=== PATIENT | female | born 1970 | race Caucasian/White ===

== ENCOUNTER 2018-04-29 13:51 | Emergency (ER) | payer MEDICARE, MEDICAID ==
[~2018-04-29] VITALS: Ht 170.2 cm; Wt 136.0 kg
[~2018-04-29 13:51] MED LIST: ALBU18HF2 INH; ALBU8.5H8 IH; ASPI-611 PO; BENZ-16 PO; CARI350T PO; FLUT16SP26 BOTHNARES; GUAI-178 PO; GUAI120015 PO; HYDR-4353 PO; IBUP-1985 PO; LIDO700A5 TOP; LORA-512 PO; METO25TA6 PO; NITR0.4T48 SL; ONDA4TAB12 PO; PHEN-716 PO
--- NOTE | 2018-04-29 14:00 | NUR ---
removed all rings to bilat hands and is keeping them with him.
--- NOTE | 2018-04-29 14:10 | NUR ---
paitent to xray.
[2018-04-29] MEDS ORDERED: LIDOcaine 1% 30ml preserv. free vial IJ ONE (14:25)
[2018-04-29] MEDS ORDERED: HYDROcodone/acetaminophen 10/325mg tab PO ONE (14:25)
--- NOTE | 2018-04-29 15:28 | NUR ---
LINE OUT MAN IN ROOM
[2018-04-29] MEDS ORDERED: HYDR-4353 PO (15:58)
[2018-04-29] MEDS ORDERED: NAPR-56 PO (15:58)
[2018-04-29 16:11] VITALS: BP 145/87
== END 2018-04-29 16:13 | disposition home or self-care (01) ==
LOC: ER 13:51
DX: S52.592A Other fractures of lower end of left radius, initial encounter for closed fracture (principal); S52.591A Other fractures of lower end of right radius, initial encounter for closed fracture; S52.611A Displaced fracture of right ulna styloid process, initial encounter for closed fracture; J45.909 Unspecified asthma, uncomplicated; G89.29 Other chronic pain; Z56.0 Unemployment, unspecified; Z88.5 Allergy status to narcotic agent; Z88.6 Allergy status to analgesic agent; Z88.1 Allergy status to other antibiotic agents; Z79.82 Long term (current) use of aspirin; Z79.899 Other long term (current) drug therapy; W19.XXXA Unspecified fall, initial encounter; Y93.89 Activity, other specified; Y92.89 Other specified places as the place of occurrence of the external cause; Y99.9 Unspecified external cause status
CPT/HCPCS: 25605; 29125; 73100; 73110; 99284; J3490

== ENCOUNTER 2018-04-30 00:53 | Emergency (ER) | payer MEDICARE, MEDICAID ==
[~2018-04-30] VITALS: Ht 170.2 cm; Wt 61.8 kg
[~2018-04-30 00:53] MED LIST changes: +NAPR-56 PO
[2018-04-30] MEDS ORDERED: HYDROcodone/acetaminophen 5mg/325mg tablet PO ONE (01:20)
[2018-04-30] MEDS ORDERED: ibuprofen tablet 400 MG TABLET PO ONE (01:25)
[2018-04-30] MEDS ORDERED: HYDROmorphone 1 mg/ml syringe IM ONE (02:15)
--- NOTE | 2018-04-30 02:28 | NUR ---
LIDIA WAS PAGED TO COME IN TO REDUE SPLINT. I WAS IN ROOM TO AID HER IF NEEDED. LIDIA CUT COTTON WRAPS AND REWRAPPED SPLINT EXTREAMLY LOOSE. CURCULATION WAS RESTORED, AND HAND MOVEMENT IMPROVED.
--- NOTE | 2018-04-30 02:30 | NUR ---
SPLINT EVALUATED BY , PT SAYS ALSO THAT IT FEELS SO MUCH BETTER NOW. CMS INTACT.
[2018-04-30 02:32] VITALS: BP 112/82
== END 2018-04-30 02:33 | disposition home or self-care (01) ==
LOC: ER 00:54
DX: M79.602 Pain in left arm (principal); R20.0 Anesthesia of skin; J45.909 Unspecified asthma, uncomplicated; G89.29 Other chronic pain; Z56.0 Unemployment, unspecified; Z88.5 Allergy status to narcotic agent; Z88.6 Allergy status to analgesic agent; Z88.8 Allergy status to other drugs, medicaments and biological substances; Z79.82 Long term (current) use of aspirin; Z79.899 Other long term (current) drug therapy
CPT/HCPCS: 29125; 96372; 99283; J1170

== ENCOUNTER 2018-05-04 11:06 | Outpatient (CLI) | payer MEDICARE, MEDICAID ==
[~2018-05-04] VITALS: Ht 170.2 cm; Wt 63.0 kg
[2018-05-04 11:07] VITALS: BP 128/82
== END 2018-05-04 12:05 | disposition home or self-care (01) ==
LOC: ORTHO 11:06
PROVIDERS: ATTEND Nurse Practitioner Family
DX: S52.592A Other fractures of lower end of left radius, initial encounter for closed fracture (principal); S52.591A Other fractures of lower end of right radius, initial encounter for closed fracture; J45.909 Unspecified asthma, uncomplicated; F17.210 Nicotine dependence, cigarettes, uncomplicated; Z88.6 Allergy status to analgesic agent; Z88.5 Allergy status to narcotic agent; Z88.8 Allergy status to other drugs, medicaments and biological substances; W19.XXXA Unspecified fall, initial encounter; Y93.89 Activity, other specified; Y92.89 Other specified places as the place of occurrence of the external cause; Y99.8 Other external cause status
CPT/HCPCS: G0463

== ENCOUNTER 2018-05-11 18:03 | Emergency (ER) | payer MEDICARE, MEDICAID ==
[~2018-05-11] VITALS: Ht 170.2 cm; Wt 59.1 kg
[~2018-05-11 18:03] MED LIST changes: -ALBU8.5H8 IH; -ASPI-611 PO; -BENZ-16 PO; -CARI350T PO; -FLUT16SP26 BOTHNARES; -GUAI-178 PO; -GUAI120015 PO; -LIDO700A5 TOP; -LORA-512 PO; -METO25TA6 PO; -NAPR-56 PO; -NITR0.4T48 SL; -ONDA4TAB12 PO; -PHEN-716 PO
[2018-05-11 18:45] VITALS: BP 142/81
[2018-05-11] MEDS ORDERED: ketorolac trometh inj. 60 MG/2 ML VIAL IM ONE (18:55)
[2018-05-11] MEDS ORDERED: oxyCODONE/APAP 10/325mg tablet PO ONE (18:55)
[2018-05-11] MEDS ORDERED: HYDROmorphone 1 mg/ml syringe IM ONE (20:15)
== END 2018-05-11 22:25 | disposition home or self-care (01) ==
LOC: ER 18:04
DX: S52.592D Other fractures of lower end of left radius, subsequent encounter for closed fracture with routine healing (principal); S52.591D Other fractures of lower end of right radius, subsequent encounter for closed fracture with routine healing; S52.611D Displaced fracture of right ulna styloid process, subsequent encounter for closed fracture with routine healing; I10 Essential (primary) hypertension; J45.909 Unspecified asthma, uncomplicated; G89.29 Other chronic pain; Z56.0 Unemployment, unspecified; Z98.890 Other specified postprocedural states; Z79.899 Other long term (current) drug therapy; Z88.1 Allergy status to other antibiotic agents; Z88.6 Allergy status to analgesic agent; W19.XXXD Unspecified fall, subsequent encounter
CPT/HCPCS: 29125; 96372; 99284; J1170; J1885

== ENCOUNTER 2018-05-19 05:24 | Day surgery (SDC) | payer MEDICARE, MEDICAID ==
[2018-05-09 10:33] LABS: BASOPHILS % (AUTO) 0.3 % (0-1); EOSINOPHILS # (AUTO) 0.3 X10'3 (0-0.9); EOSINOPHILS % (AUTO) 2.6 % (0-6); LYMPHOCYTES # (AUTO) 2.2 X10'3 (1.1-4.8); LYMPHOCYTES % (AUTO) 22.8 % (21-51); MEAN CORPUSCULAR HEMOGLOBIN 31.4 PG (27.0-31.0); MEAN CORPUSCULAR HGB CONC 34.1 g/dL (33.0-36.5); MEAN PLATELET VOLUME 7.6 FL (7.4-10.4); MONOCYTES # (AUTO) 0.6 X10'3 (0-0.9); MONOCYTES % (AUTO) 6.7 % (2-12); NEUTROPHILS # (AUTO) 6.4 X10'3 (1.8-7.7); NEUTROPHILS % (AUTO) 67.6 % (42-75); PRE OP HEMATOCRIT 40.9 % (35.0-45.0); PRE OP HEMOGLOBIN 13.9 g/dL (12.0-16.0); PRE OP PLATELET COUNT 291 X10'3 (140-440); RED BLOOD COUNT 4.45 X10'6 (4.20-5.60); RED CELL DISTRIBUTION WIDTH 12.4 % (11.5-14.5)
[2018-05-09 10:48] LABS: ALBUMIN 3.8 G/DL (3.4-5.0); ALKALINE PHOSPHATASE 77 IU/L (46-116); BLOOD UREA NITROGEN 15 MG/DL (7-18); BUN/CREATININE RATIO 21.1 (6.6-38.0); CALCIUM 9.1 MG/DL (8.5-10.1); CHLORIDE 103 MMOL/L (99-107); CREATININE 0.71 MG/DL (0.40-0.90); PRE OP ALT 26 U/L (30-65); PRE OP ANION GAP 10 (8-16); PRE OP AST 18 U/L (10-37); PRE OP BILIRUB, TOTAL 0.4 MG/DL (0.0-1.0); PRE OP GLUCOSE 90 MG/DL (70-104); PRE OP POTASSIUM 3.9 MMOL/L (3.4-5.1); PRE OP SODIUM 139 MMOL/L (135-145); TOTAL CARBON DIOXIDE 25.6 MMOL/L (24-32); TOTAL PROTEIN 7.7 G/DL (6.4-8.2); eGFR 88 ML/MIN
[2018-05-19] VITALS (10 sets, daily range): BP systolic 108–145; BP diastolic 68–89
[~2018-05-19] VITALS: Ht 170.2 cm; Wt 58.6 kg
[~2018-05-19 05:24] MED LIST changes: -ALBU18HF2 INH; -IBUP-1985 PO; +IBUP-24 PO; +VANCOMYCIN INJ 1000 MG in NORMAL SALINE 250ml IV.SOLN IV ONE; +albuterol 2.5 MG/3 ML nebule NEB ONE; +cefazolin/dext.iso 2gm/100 ML IV ONE; +cefazolin/dext.iso 2gm/50ml 50 ML IV ONE; +famotidine 20mg tablet PO ONE; +ringers solution, lacted 1,000 ML IV SCH
[2018-05-19] MEDS ORDERED: cefazolin/dext.iso 2gm/50ml 50 ML IV ONE (05:30)
[2018-05-19] MEDS ORDERED: famotidine 20mg tablet PO ONE (05:30)
[2018-05-19] MEDS ORDERED: albuterol 2.5 MG/3 ML nebule NEB ONE ×2 (05:30→07:25)
[2018-05-19] MEDS ORDERED: VANCOMYCIN INJ 1000 MG in NORMAL SALINE 250ml IV.SOLN IV ONE (05:30)
[2018-05-19] MEDS ORDERED: LIDOcaine 1% (10mg/ml) 2ml vial SQ ONE (05:59)
[2018-05-19] MEDS ORDERED: LIDOcaine 1% (10mg/ml) 2ml vial ONE (05:59)
[2018-05-19] MEDS ORDERED: BUPIVAcaine/PF 2.5mg/ml (0.25%) 10ml vial ONE (06:41)
[2018-05-19] MEDS ORDERED: ceFAZolin 1000mg inj ONE (06:41)
[2018-05-19] MEDS ORDERED: MIDAZolam 5mg/5ml vial ONE (07:30)
[2018-05-19] MEDS ORDERED: fentaNYL /PF 50mcg/ml 5ml ampule ONE (07:31)
[2018-05-19] MEDS ORDERED: dexamethasone sod phosphate 10mg/ml inj ONE (07:40)
[2018-05-19] MEDS ORDERED: sevoflurane 250ml liquid IH ONE (07:40)
[2018-05-19] MEDS ORDERED: propofol inj 20 ML IV ONE (07:47)
[2018-05-19] MEDS ORDERED: ringers solution, lacted 1,000 ML IV SCH (08:28)
[2018-05-19] MEDS ORDERED: proCHLORperazine 10 MG/2 ml inj IV PRN (08:30)
[2018-05-19] MEDS ORDERED: meperidine/PF 25mg/ml syringe IV PRN ×2 (08:30)
[2018-05-19] MEDS ORDERED: ondansetron/PF 4mg/2ml inj IV PRN (08:30)
[2018-05-19] MEDS ORDERED: BUPIVAcaine/PF 7.5mg/ml (0.75%) 10ml vial ONE (09:06)
[2018-05-19] MEDS ORDERED: ketorolac trometh. 30mg/ml inj. ONE (10:23)
--- NOTE | 2018-05-19 10:55 | NUR ---
Received from OR via BED, accompanied by Anesthesiologist DR BLAND--- and report given by Anesthesiolgist. PATIENT A&OX4, C/O PAIN, V/S WNL, NEUROVASCULAR CHECKS INTACT, 20G PIV RLE, SCD ON, BILAT WRIST SPLINT DRESSING CDI
[2018-05-19] MEDS: meperidine/PF 25mg/ml syringe IV PRN ×5 (10:56→11:28)
[2018-05-19] MEDS ORDERED: HYDROcodone/acetaminophen 10/325mg tab PO ONE (11:00)
[2018-05-19] MEDS ORDERED: acetaminophen 1,000mg/100ml IV 100 ML IV ONE (11:00)
--- NOTE | 2018-05-19 11:37 | NUR ---
PATIENT C/O DRESSING BEING TO TIGHT, HUMAN RESOURCES REPRESENTATIVE <2 SEC , DRESSINGS UNWRAPPED AND REWRAPPED VERY [place] BILATERALLY AND THIS WAS DONE 2 TIMES TO EACH HAND. PATIENT STILL C/O OF TIGHTNESS BUT IT IS BETTER THAN BEFORE SHE STATES. THIS MAY BE RELATED TO LOCAL MEDS CAUSING CHANGES IN SENSATION. PATIENT INSTRUCTED TO CALL IF TIGHTNESS GETS WORSE AND MORE PAINFULL OR IF COLOR CHANGES TO FINGERS AND HE WAS TAUGHT HUMAN RESOURCES REPRESENTATIVE <2 SEC APPROPRIATE
--- NOTE | 2018-05-19 11:49 | NUR ---
PATIENT CRYING AND EMOTIONAL WITH AT BED SIDE. SHE STATES SHE WANTS TO GO HOME. THEY HAVE PAIN MEDS AT HOME WELL HE STATED AND WILL BE FINE. 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
--- NOTE | 2018-05-19 12:05 | NUR ---
PATIENT A&OX4, DENIES PAIN, V/S WNL, NEUROVASCULAR CHECKS INTACT, 20G PIV LLE D/C, SCD OFF, DRESSING TO RIGHT AND LEFT WRIST CDI ELEVATED AND LOOSENED EARLIER. I HAVE REVIEWED D/C INSTRUCTIONS WITH PATIENT AND FAMILY AND THEY HAVE VERBALIZED UNDERSTANDING. PATIENT D/C HOME WITH ALL BELONGINGS AND FAMILY GAVE TRANSPORT HOME. Addendum: 05/19/18 at 1621 by Fermín Reilly RN PATIENT A&OX4, SEE PAIN NOTES IN V/S RECORD, V/S WNL, NEUROVASCULAR CHECKS INTACT, 20G PIV LLE D/C, SCD OFF, DRESSING TO RIGHT AND LEFT WRIST CDI ELEVATED AND LOOSENED MENTIONED EARLIER. I HAVE REVIEWED D/C INSTRUCTIONS WITH PATIENT AND FAMILY AND THEY HAVE VERBALIZED UNDERSTANDING. PATIENT D/C HOME WITH ALL BELONGINGS AND FAMILY GAVE TRANSPORT HOME.
--- NOTE | 2018-05-19 15:59 | NUR ---
PATIENTS CALLED RECOVER AND IS DOWN IN ER NOW. HE STATED THEY WENT HOME AND PATIENT TOOK 1 MOTRIN AND WAS AFRAID TO TAKE HER OTHER PRESCRIBED MEDS BECAUSE SHE WAS AFRAID IT WOULD INTERFERE WITH THE ANESTHESIA SHE GOT EARLIER TODAY. HER TRIED TO GET HER TO TAKE HER PRESCRIBED MEDS BUT SHE WOULD ONLY TAKE HALF A DOSE HE STATED. hE ALSO SAID SHE HAD USED UP MOST OF HER MEDS THAT SHE WAS PRESCRIBED FROM HER LAST DOCTORS VISIT AND THEY TRIED TO GET THE BOTTLE REFILLED BUT THEIR PHARMACY WOULD NOT FILL IT BECAUSE IT WAS TO SOON. i ADVISED THE HIM TO HAVE HIS TAKE THE FULL DOSE OF PAIN MEDICINE PRESCRIBED IF HER PAIN WAS NOT CONTROLLED AND TO REMEMBER TO KEEP HER ARMS ELEVATED AND ICE FOR THE NEXT 2 DAYS ON AND OFF EVERY 30 MINUTES. I ALSO TOLD HIM THAT IF HER PAIN WAS NOT WELL CONTROLLED AFTER THAT AND THEY ARE UNABLE TO GET THEIR PHARMACY TO FILL THEIR NORCO THAT WAS ORDERED THEN THEY WOULD HAVE TO SEE THEIR DOCTOR OR TRY THE ER TO SEE WHAT THEY CAN DO TO GET HER PAIN UNDER CONTROL AND PERHAPS THEY WOULD PRESCRIBE SOMETHING STRONGER THEN NORCO. tHE AGREED TO THIS AND WANTS TO STAY IN ER FOR HIS TO BE SEEN HOPING TO GET SOMETHING STRONGER. wHILE PATIENT WAS HERE AT 1130 TODAY SHE RECEIVED 100MG OF DEMEROL, IV TYLENOL, NORCO, AND TORADOL.
[2018-05-19] MEDS ORDERED: OXYC-138 PO (16:44)
== END 2018-05-19 12:05 | disposition home or self-care (01) ==
LOC: PAS 05:24
PROVIDERS: ATTEND Orthopaedic Surgery
DX: S52.591A Other fractures of lower end of right radius, initial encounter for closed fracture (principal); S52.592A Other fractures of lower end of left radius, initial encounter for closed fracture; F17.210 Nicotine dependence, cigarettes, uncomplicated; F12.90 Cannabis use, unspecified, uncomplicated; W17.89XA Other fall from one level to another, initial encounter; Y93.21 Activity, ice skating; Y92.89 Other specified places as the place of occurrence of the external cause; Y99.8 Other external cause status; Z88.6 Allergy status to analgesic agent; Z88.8 Allergy status to other drugs, medicaments and biological substances; Z79.899 Other long term (current) drug therapy; Z91.041 Radiographic dye allergy status
CPT/HCPCS: 25607; 36415; 71046; 80053; 82948; 85025; 93005; 94640; 94760; A6449; C1713; J0131; J0690; J1100; J1885; J2175; J2250; J2704; J3010; J3370; J3490; A7000; J7120

== ENCOUNTER 2018-05-19 15:39 | Emergency (ER) | payer MEDICARE, MEDICAID ==
[~2018-05-19] VITALS: Ht 170.2 cm; Wt 27.9 kg
[~2018-05-19 15:39] MED LIST changes: -VANCOMYCIN INJ 1000 MG in NORMAL SALINE 250ml IV.SOLN IV ONE; -albuterol 2.5 MG/3 ML nebule NEB ONE; -cefazolin/dext.iso 2gm/100 ML IV ONE; -cefazolin/dext.iso 2gm/50ml 50 ML IV ONE; -famotidine 20mg tablet PO ONE; -ringers solution, lacted 1,000 ML IV SCH
[2018-05-19 16:23] VITALS: BP 146/77
[2018-05-19] MEDS ORDERED: LORazepam 1 MG tablet PO ONE (16:30)
[2018-05-19] MEDS ORDERED: oxyCODONE/APAP 10/325mg tablet PO ONE (16:30)
[2018-05-19] MEDS ORDERED: OXYC-138 PO (16:44)
== END 2018-05-19 17:23 | disposition home or self-care (01) ==
LOC: ER 15:40
DX: G89.18 Other acute postprocedural pain (principal); M25.531 Pain in right wrist; M25.532 Pain in left wrist; I10 Essential (primary) hypertension; G89.29 Other chronic pain; J45.909 Unspecified asthma, uncomplicated; F17.210 Nicotine dependence, cigarettes, uncomplicated; Z56.0 Unemployment, unspecified; Z88.1 Allergy status to other antibiotic agents; Z88.6 Allergy status to analgesic agent; Z88.8 Allergy status to other drugs, medicaments and biological substances; Z98.890 Other specified postprocedural states
CPT/HCPCS: 29125; 99284

== ENCOUNTER 2018-05-30 10:44 | Outpatient (CLI) | payer MEDICARE, MEDICAID ==
[~2018-05-30 10:44] MED LIST changes: +OXYC-138 PO
[2018-05-30 10:48] VITALS: BP 115/77
[2018-05-30] MEDS ORDERED: LIDOcaine 1% 30ml preserv. free vial ONE (11:20)
[2018-05-30] MEDS ORDERED: LIDOcaine 2% 5ml jelly ONE ×2 (11:21)
== END 2018-05-30 13:07 | disposition home or self-care (01) ==
LOC: ORTHO 10:44
PROVIDERS: ATTEND Nurse Practitioner Family
DX: S52.572D Other intraarticular fracture of lower end of left radius, subsequent encounter for closed fracture with routine healing (principal); S52.612D Displaced fracture of left ulna styloid process, subsequent encounter for closed fracture with routine healing; S52.571D Other intraarticular fracture of lower end of right radius, subsequent encounter for closed fracture with routine healing; J45.909 Unspecified asthma, uncomplicated; F17.210 Nicotine dependence, cigarettes, uncomplicated; Z88.6 Allergy status to analgesic agent; Z91.041 Radiographic dye allergy status; W19.XXXD Unspecified fall, subsequent encounter
CPT/HCPCS: 73110; 99214; J3490

== ENCOUNTER 2018-06-08 09:11 | Outpatient (CLI) | payer MEDICARE, MEDICAID ==
[2018-06-08 09:15] VITALS: BP 119/83
== END 2018-06-08 10:18 | disposition home or self-care (01) ==
LOC: ORTHO 09:11
PROVIDERS: ATTEND Nurse Practitioner Family
DX: S52.592D Other fractures of lower end of left radius, subsequent encounter for closed fracture with routine healing (principal); S52.591D Other fractures of lower end of right radius, subsequent encounter for closed fracture with routine healing; J45.909 Unspecified asthma, uncomplicated; F17.210 Nicotine dependence, cigarettes, uncomplicated; Z88.6 Allergy status to analgesic agent; Z88.5 Allergy status to narcotic agent; Z91.041 Radiographic dye allergy status; W19.XXXD Unspecified fall, subsequent encounter
CPT/HCPCS: 99213; A4590

== ENCOUNTER 2018-06-28 15:15 | Outpatient (CLI) | payer MEDICARE, MEDICAID | END 2018-06-28 15:52 | disposition home or self-care (01) | LOC: ORTHO 15:15 | PROVIDERS: ATTEND Orthopaedic Surgery | DX: S52.502K Unspecified fracture of the lower end of left radius, subsequent encounter for closed fracture with nonunion (principal); S52.501K Unspecified fracture of the lower end of right radius, subsequent encounter for closed fracture with nonunion; J45.909 Unspecified asthma, uncomplicated; F17.210 Nicotine dependence, cigarettes, uncomplicated; Z88.6 Allergy status to analgesic agent; Z88.5 Allergy status to narcotic agent; Z91.041 Radiographic dye allergy status; W19.XXXD Unspecified fall, subsequent encounter | CPT/HCPCS: 73100; 99213 ==

== ENCOUNTER 2018-08-03 11:31 | Outpatient (CLI) | payer MEDICARE, MEDICAID ==
[2018-08-03 11:42] VITALS: BP 93/73
== END 2018-08-03 12:45 | disposition home or self-care (01) ==
LOC: ORTHO 11:31
PROVIDERS: ATTEND Orthopaedic Surgery
DX: S52.612K Displaced fracture of left ulna styloid process, subsequent encounter for closed fracture with nonunion (principal); S52.592D Other fractures of lower end of left radius, subsequent encounter for closed fracture with routine healing
CPT/HCPCS: 73110; G0463

== ENCOUNTER 2018-10-31 23:18 | Emergency (ER) | payer MEDICARE, MEDICAID ==
[~2018-10-31] VITALS: Ht 170.2 cm; Wt 60.0 kg
[2018-10-31 23:21] VITALS: BP 105/75
== END 2018-11-01 02:43 | disposition left against medical advice (07) ==
LOC: ER 23:18
DX: G89.18 Other acute postprocedural pain (principal); M25.532 Pain in left wrist; Z53.21 Procedure and treatment not carried out due to patient leaving prior to being seen by health care provider; Z79.899 Other long term (current) drug therapy
CPT/HCPCS: 73110

== ENCOUNTER 2019-02-24 00:24 | Emergency (ER) | payer MEDICARE, MEDICAID ==
[~2019-02-24] VITALS: Ht 170.2 cm; Wt 62.3 kg
[2019-02-24 00:31] VITALS: BP 129/74
[2019-02-24 01:09] LABS: CLARITY,URINE SLIGHTLY CLOUDY (Clear); COLOR,URINE YELLOW (Yellow); GLUCOSE, URINE NEGATIVE (Neg); KETONES,URINE NEGATIVE (Neg); LEUKOCYTE ESTERASE ,URINE MODERATE (Neg); NITRITES, URINE NEGATIVE (Neg); OCCULT BLOOD,URINE MODERATE (Neg); PROTEIN,URINE NEGATIVE (Neg); UA COLLECTION TYPE CLN CATCH MIDSTREAM; UROBILINOGEN,URINE 0.2 E.U/dL (0.2-1.0)
[2019-02-24 01:10] LABS: URINE HCG NEGATIVE (NEG)
[2019-02-24 01:17] LABS: WBC,URINE 20-30 /HPF (0-4)
[2019-02-24 01:18] LABS: BACTERIA,URINE 1+ /HPF (Neg); MUCUS STRANDS NONE SEEN /LPF (Neg); SQUAMOUS EPITHELIAL CELL,UR FEW /LPF (FEW); WBC CLUMPS,URINE MODERATE /HPF (NEGATIVE)
[2019-02-24] MEDS ORDERED: SULF1TAB49 PO (01:21)
[2019-02-24] MEDS ORDERED: PHEN-716 PO (01:21)
[2019-02-24] MEDS ORDERED: phenazopyridine 100mg tablet PO ONE (01:25)
[2019-02-24] MEDS ORDERED: sulfamethoxazole/trimethoprim DS (800/160mg) tablet PO ONE (01:25)
[2019-02-24] MEDS ORDERED: ketorolac tromethamine 15mg/ml inj. IM ONE (01:30)
== END 2019-02-24 01:59 | disposition home or self-care (01) ==
LOC: ER 00:24
DX: N39.0 Urinary tract infection, site not specified (principal); I10 Essential (primary) hypertension; J45.909 Unspecified asthma, uncomplicated; G89.29 Other chronic pain; F12.90 Cannabis use, unspecified, uncomplicated; Z98.890 Other specified postprocedural states; Z56.0 Unemployment, unspecified; Z88.6 Allergy status to analgesic agent; Z88.5 Allergy status to narcotic agent; Z88.1 Allergy status to other antibiotic agents; Z79.899 Other long term (current) drug therapy
CPT/HCPCS: 81001; 81025; 87077; 87088; 87186; 96372; 99284; J1885

== ENCOUNTER 2019-12-10 20:33 | Emergency (ER) | payer MEDICARE, MEDICAID ==
[~2019-12-10] VITALS: Ht 170.2 cm; Wt 60.1 kg
[~2019-12-10 20:33] MED LIST changes: +PHEN-716 PO
--- NOTE | 2019-12-10 20:54 | NUR ---
cn: [id number]
[2019-12-10] MEDS ORDERED: HYDROcodone/acetaminophen 10/325mg tab PO ONE (21:55)
[2019-12-10] MEDS ORDERED: LIDOcaine 1% W/epiNEPHrine 1:200,000 10ml vial IJ ONE (22:05)
[2019-12-10] MEDS ORDERED: sulfamethoxazole/trimethoprim DS (800/160mg) tablet PO ONE (23:10)
[2019-12-10] MEDS ORDERED: cephalexin 250mg capsule PO ONE (23:10)
[2019-12-10] MEDS ORDERED: CEPH-572 PO (23:16)
[2019-12-10] MEDS ORDERED: HYDR-3965 PO (23:16)
[2019-12-10 23:26] VITALS: BP 116/82
== END 2019-12-10 23:26 | disposition home or self-care (01) ==
LOC: ER 20:33
DX: S62.622B Displaced fracture of middle phalanx of right middle finger, initial encounter for open fracture (principal); S62.624B Displaced fracture of middle phalanx of right ring finger, initial encounter for open fracture; I10 Essential (primary) hypertension; J45.909 Unspecified asthma, uncomplicated; G89.29 Other chronic pain; F41.0 Panic disorder [episodic paroxysmal anxiety]; F12.90 Cannabis use, unspecified, uncomplicated; Z98.890 Other specified postprocedural states; Z56.0 Unemployment, unspecified; Z91.048 Other nonmedicinal substance allergy status; Z88.5 Allergy status to narcotic agent; Z88.1 Allergy status to other antibiotic agents; Z91.040 Latex allergy status; Z88.8 Allergy status to other drugs, medicaments and biological substances; Z79.2 Long term (current) use of antibiotics; Z79.899 Other long term (current) drug therapy; Y08.89XA Assault by other specified means, initial encounter; Y93.89 Activity, other specified; Y92.89 Other specified places as the place of occurrence of the external cause; Y99.8 Other external cause status
CPT/HCPCS: 12001; 29130; 73130; 99283

== ENCOUNTER 2020-08-12 13:42 | Emergency (ER) | payer MEDICARE, MEDICAID ==
[~2020-08-12] VITALS: Ht 170.2 cm; Wt 54.6 kg
[2020-08-12] MEDS ORDERED: HYDROcodone/acetaminophen 10/325mg tab PO STA (13:56)
[2020-08-12] MEDS ORDERED: HYDROcodone/acetaminophen 5mg/325mg tablet PO ONE (16:00)
[2020-08-12 16:22] VITALS: BP 125/106
== END 2020-08-12 18:10 | disposition home or self-care (01) ==
LOC: ER 13:43
DX: M25.531 Pain in right wrist (principal); I10 Essential (primary) hypertension; J45.909 Unspecified asthma, uncomplicated; G89.29 Other chronic pain; F12.90 Cannabis use, unspecified, uncomplicated; Z87.440 Personal history of urinary (tract) infections; Z98.891 History of uterine scar from previous surgery; Z56.0 Unemployment, unspecified; Z79.899 Other long term (current) drug therapy; Z91.041 Radiographic dye allergy status; Z88.1 Allergy status to other antibiotic agents; Z88.6 Allergy status to analgesic agent; Z91.040 Latex allergy status; Z88.8 Allergy status to other drugs, medicaments and biological substances; W01.0XXA Fall on same level from slipping, tripping and stumbling without subsequent striking against object, initial encounter; Z91.81 History of falling; Y93.89 Activity, other specified; Y92.89 Other specified places as the place of occurrence of the external cause; Y99.8 Other external cause status
CPT/HCPCS: 29125; 73110; 73200; 99284

== ENCOUNTER 2022-01-05 19:15 | Emergency (ER) | payer MEDICARE, MEDICAID ==
[~2022-01-05] VITALS: Ht 170.2 cm; Wt 52.3 kg
[2022-01-05 19:38] VITALS: BP 97/70
[2022-01-05 20:15] LABS: CLARITY,URINE TURBID (Clear); COLOR,URINE YELLOW (Yellow); GLUCOSE, URINE NEGATIVE (Neg); KETONES,URINE NEGATIVE (Neg); LEUKOCYTE ESTERASE ,URINE MODERATE (Neg); NITRITES, URINE POSITIVE (Neg); OCCULT BLOOD,URINE LARGE (Neg); PROTEIN,URINE 100 mg/dl (Neg); UROBILINOGEN,URINE 0.2 E.U/dL (0.2-1.0)
[2022-01-05 20:20] LABS: BASOPHILS # (AUTO) 0.1 X10'3 (0-0.2); BASOPHILS % (AUTO) 0.5 % (0-1); EOSINOPHILS % (AUTO) 0.1 % (0-6); HEMATOCRIT 39.7 % (35.0-45.0); HEMOGLOBIN 13.7 g/dl (12.0-16.0); LYMPHOCYTES # (AUTO) 1.2 X10'3 (1.1-4.8); LYMPHOCYTES % (AUTO) 10.2 % (21-51); MEAN CORPUSCULAR HEMOGLOBIN 31.4 PG (27.0-31.0); MEAN CORPUSCULAR HGB CONC 34.4 g/dL (33.0-36.5); MEAN CORPUSCULAR VOLUME 91.1 FL (78-98); MEAN PLATELET VOLUME 7.4 FL (7.4-10.4); MONOCYTES # (AUTO) 1.1 X10'3 (0-0.9); MONOCYTES % (AUTO) 9.3 % (2-12); NEUTROPHILS # (AUTO) 9.6 X10'3 (1.8-7.7); NEUTROPHILS % (AUTO) 79.9 % (42-75); PLATELET COUNT 181 X10'3 (140-440); RED BLOOD COUNT 4.35 X10'6 (4.20-5.60); RED CELL DISTRIBUTION WIDTH 13.2 % (11.5-14.5); WHITE BLOOD COUNT 12.1 X10'3 (4.5-11.0)
[2022-01-05 20:23] LABS: UA COLLECTION TYPE CLN CATCH MIDSTREAM
[2022-01-05 20:25] LABS: BACTERIA,URINE 3+ /HPF (Neg); MUCUS STRANDS NONE SEEN /LPF (Neg); WBC,URINE TNTC /HPF (0-4)
[2022-01-05 20:26] LABS: SQUAMOUS EPITHELIAL CELL,UR FEW /LPF (FEW); WBC CLUMPS,URINE MODERATE /HPF (NEGATIVE); YEAST FEW /HPF (NEGATIVE)
[2022-01-05 20:35] LABS: ALANINE AMINOTRANSFERASE 33 U/L (12-78); ALBUMIN 3.4 G/DL (3.4-5.0); ALBUMIN/GLOBULIN RATIO 0.8 (1.1-1.5); ALKALINE PHOSPHATASE 78 IU/L (46-116); ANION GAP 3 (8-16); ASPARTATE AMINO TRANSFERASE 25 U/L (10-37); BILIRUBIN,TOTAL 0.5 MG/DL (0.1-1.0); BLOOD UREA NITROGEN 10 MG/DL (7-18); BUN/CREATININE RATIO 11.4 (6.6-38.0); CHLORIDE 100 MMOL/L (99-107); CREATININE 0.88 MG/DL (0.40-0.90); ETHANOL < 0.010 GM/DL (0.0-0.010); GLUCOSE 113 MG/DL (70-104); POTASSIUM 3.8 MMOL/L (3.5-5.1); SODIUM 134 MMOL/L (135-145); TOTAL CARBON DIOXIDE 30.9 MMOL/L (24-32); TOTAL PROTEIN 7.8 G/DL (6.4-8.2); eGFR 68 ML/MIN
[2022-01-05 20:41] LABS: URINE AMPHETAMINE SCREEN POSITIVE (Neg); URINE BARBITUATE SCREEN NEGATIVE (Neg); URINE BENZODIAZEPINES SCREEN NEGATIVE (Neg); URINE CANNABINOID SCREEN POSITIVE (Neg); URINE COCAINE SCREEN NEGATIVE (Neg); URINE METHADONE SCREEN NEGATIVE (Neg); URINE OPIATE SCREEN NEGATIVE (Neg); URINE PHENCYCLIDINE SCREEN NEGATIVE (Neg)
[2022-01-05] MEDS ORDERED: CEPH250T PO (20:53)
[2022-01-05] MEDS ORDERED: CefTRIAXone 1000mg IM Kit (w/lidocaine diluent) IM ONE (20:55)
[2022-01-05] MEDS ORDERED: acetaminophen 325mg tablet PO ONE (21:15)
== END 2022-01-05 21:28 | disposition home or self-care (01) ==
LOC: ER 19:15
DX: N39.0 Urinary tract infection, site not specified (principal); F15.20 Other stimulant dependence, uncomplicated; R53.1 Weakness; I10 Essential (primary) hypertension; J45.909 Unspecified asthma, uncomplicated; G89.29 Other chronic pain; M54.50 Low back pain, unspecified; F12.90 Cannabis use, unspecified, uncomplicated; Z88.1 Allergy status to other antibiotic agents; Z88.5 Allergy status to narcotic agent; Z88.6 Allergy status to analgesic agent; Z91.040 Latex allergy status; Z91.041 Radiographic dye allergy status; Z98.890 Other specified postprocedural states; Z56.0 Unemployment, unspecified
CPT/HCPCS: 36415; 80053; 80305; 80320; 81001; 85025; 87077; 87088; 87186; 96372; 99283; J0696; J7030

== ENCOUNTER 2022-06-01 17:22 | Emergency (ER) | payer MEDICARE, MEDICAID ==
[~2022-06-01] VITALS: Ht 170.2 cm; Wt 56.8 kg
[2022-06-01 17:39] VITALS: BP 117/84
[2022-06-01 18:08] LABS: BASOPHILS # (AUTO) 0.1 X10'3 (0-0.2); BASOPHILS % (AUTO) 0.7 % (0-1); EOSINOPHILS # (AUTO) 0.2 X10'3 (0-0.9); EOSINOPHILS % (AUTO) 2.5 % (0-6); HEMATOCRIT 40.3 % (35.0-45.0); HEMOGLOBIN 13.5 g/dl (12.0-16.0); LYMPHOCYTES # (AUTO) 2.1 X10'3 (1.1-4.8); LYMPHOCYTES % (AUTO) 29.5 % (21-51); MEAN CORPUSCULAR HEMOGLOBIN 30.9 PG (27.0-31.0); MEAN CORPUSCULAR HGB CONC 33.5 g/dL (33.0-36.5); MEAN CORPUSCULAR VOLUME 92.1 FL (78-98); MEAN PLATELET VOLUME 7.7 FL (7.4-10.4); MONOCYTES # (AUTO) 0.6 X10'3 (0-0.9); NEUTROPHILS # (AUTO) 4.2 X10'3 (1.8-7.7); NEUTROPHILS % (AUTO) 58.3 % (42-75); PLATELET COUNT 241 X10'3 (140-440); RED BLOOD COUNT 4.38 X10'6 (4.20-5.60); RED CELL DISTRIBUTION WIDTH 12.8 % (11.5-14.5); WHITE BLOOD COUNT 7.2 X10'3 (4.5-11.0)
[2022-06-01 18:31] LABS: ALANINE AMINOTRANSFERASE 26 U/L (12-78); ALBUMIN 3.3 G/DL (3.4-5.0); ALBUMIN/GLOBULIN RATIO 0.8 (1.1-1.5); ALKALINE PHOSPHATASE 80 IU/L (46-116); ANION GAP 6 (8-16); ASPARTATE AMINO TRANSFERASE 26 U/L (10-37); BILIRUBIN,TOTAL 0.3 MG/DL (0.1-1.0); BLOOD UREA NITROGEN 11 MG/DL (7-18); BUN/CREATININE RATIO 15.1 (6.6-38.0); CALCIUM 9.1 MG/DL (8.5-10.1); CHLORIDE 107 MMOL/L (99-107); CREATININE 0.73 MG/DL (0.40-0.90); GLUCOSE 77 MG/DL (70-104); POTASSIUM 3.8 MMOL/L (3.5-5.1); SODIUM 143 MMOL/L (135-145); TOTAL CARBON DIOXIDE 30.3 MMOL/L (24-32); TOTAL PROTEIN 7.3 G/DL (6.4-8.2); eGFR 84 ML/MIN
== END 2022-06-01 19:55 | disposition left against medical advice (07) ==
LOC: ER 17:22
DX: R06.02 Shortness of breath (principal); Z53.21 Procedure and treatment not carried out due to patient leaving prior to being seen by health care provider
CPT/HCPCS: 36415; 80053; 83735; 83880; 84484; 85025; 93005; 99281

== ENCOUNTER 2023-01-06 14:09 | Emergency (ER) | payer MEDICARE, MEDICAID ==
[~2023-01-06] VITALS: Ht 170.2 cm; Wt 45.0 kg
[2023-01-06 15:23] LABS: BASOPHILS % (AUTO) 0.7 % (0-1); EOSINOPHILS % (AUTO) 0.3 % (0-6); HEMATOCRIT 38.5 % (35.0-45.0); LYMPHOCYTES # (AUTO) 0.8 X10'3 (1.1-4.8); LYMPHOCYTES % (AUTO) 17.3 % (21-51); MEAN CORPUSCULAR HEMOGLOBIN 31.4 PG (27.0-31.0); MEAN CORPUSCULAR HGB CONC 33.7 g/dL (33.0-36.5); MEAN CORPUSCULAR VOLUME 93.2 FL (78-98); MEAN PLATELET VOLUME 7.6 FL (7.4-10.4); MONOCYTES # (AUTO) 0.6 X10'3 (0-0.9); MONOCYTES % (AUTO) 13.4 % (2-12); NEUTROPHILS # (AUTO) 3.3 X10'3 (1.8-7.7); NEUTROPHILS % (AUTO) 68.3 % (42-75); PLATELET COUNT 172 X10'3 (140-440); RED BLOOD COUNT 4.13 X10'6 (4.20-5.60); RED CELL DISTRIBUTION WIDTH 12.9 % (11.5-14.5); WHITE BLOOD COUNT 4.8 X10'3 (4.5-11.0)
[2023-01-06 15:37] LABS: ALANINE AMINOTRANSFERASE 25 U/L (12-78); ALBUMIN 3.5 G/DL (3.4-5.0); ALKALINE PHOSPHATASE 69 IU/L (46-116); AMYLASE 57 U/L (25-115); ANION GAP 4 (8-16); ASPARTATE AMINO TRANSFERASE 21 U/L (10-37); BILIRUBIN,TOTAL 0.3 MG/DL (0.1-1.0); BLOOD UREA NITROGEN 10 MG/DL (7-18); BUN/CREATININE RATIO 11.5 (10.0-20.0); CALCIUM 8.9 MG/DL (8.5-10.1); CHLORIDE 103 MMOL/L (99-107); CREATININE 0.87 MG/DL (0.40-0.90); GLUCOSE 87 MG/DL (70-104); POTASSIUM 3.6 MMOL/L (3.5-5.1); SODIUM 136 MMOL/L (135-145); TOTAL CARBON DIOXIDE 29.2 MMOL/L (24-32); eCRCL 54 ML/MIN; eGFR 68 ML/MIN
[2023-01-06 15:43] LABS: LIPASE 31 U/L (16-77)
[2023-01-06 16:53] LABS: BILIRUBIN,URINE NEGATIVE (Neg); CLARITY,URINE CLOUDY (Clear); COLOR,URINE YELLOW (Yellow); GLUCOSE, URINE NEGATIVE (Neg); KETONES,URINE 15 mg/dl (Neg); LEUKOCYTE ESTERASE ,URINE SMALL (Neg); NITRITES, URINE NEGATIVE (Neg); OCCULT BLOOD,URINE SMALL (Neg); PROTEIN,URINE 30 mg/dl (Neg); UROBILINOGEN,URINE 0.2 E.U/dL (0.2-1.0)
[2023-01-06 16:55] VITALS: TEMP 98.5
[2023-01-06 17:10] LABS: UA COLLECTION TYPE STRAIGHT CATH
[2023-01-06] MEDS ORDERED: cyclobenzaprine 10mg tablet PO ONE (17:15)
[2023-01-06] MEDS ORDERED: cephalexin 250mg capsule PO ONE (17:15)
[2023-01-06] MEDS ORDERED: ketorolac tromethamine 15mg/ml inj. IM ONE (17:15)
[2023-01-06 17:24] LABS: SQUAMOUS EPITHELIAL CELL,UR FEW /LPF (FEW); WBC,URINE TNTC /HPF (0-4)
[2023-01-06 17:25] LABS: BACTERIA,URINE FEW /HPF (Neg); WBC CLUMPS,URINE MANY /HPF (NEGATIVE)
[2023-01-06] MEDS ORDERED: SULF1TAB45 PO (17:33)
[2023-01-06] MEDS ORDERED: CYCL-1 PO (17:33)
[2023-01-06] MEDS ORDERED: CefTRIAXone 1000mg IM Kit (w/lidocaine diluent) IM ONE (17:35)
[2023-01-06] MEDS ORDERED: CefTRIAXone/D5W-Rocephin 1gm 50 ML IV ONE (17:40)
[2023-01-06] MEDS ORDERED: normal saline 500ml IV soln 500 ML IV ONE (17:45)
[2023-01-06 17:59] VITALS: BP 114/79; PULSE 78; RESP 17; O2SAT 99
== END 2023-01-06 19:18 | disposition home or self-care (01) ==
LOC: ER 14:09
DX: N39.0 Urinary tract infection, site not specified (principal); I10 Essential (primary) hypertension; J45.909 Unspecified asthma, uncomplicated; F12.90 Cannabis use, unspecified, uncomplicated; F15.90 Other stimulant use, unspecified, uncomplicated; Z91.041 Radiographic dye allergy status; Z88.1 Allergy status to other antibiotic agents; Z88.5 Allergy status to narcotic agent; Z88.6 Allergy status to analgesic agent; Z91.040 Latex allergy status; Z79.899 Other long term (current) drug therapy; Z79.1 Long term (current) use of non-steroidal anti-inflammatories (NSAID)
CPT/HCPCS: 36415; 80053; 81001; 82150; 83690; 85025; 87077; 87088; 87186; 96365; 96372; 99284; J0696; J1885; J7040; A4353

== ENCOUNTER 2023-06-11 12:59 | Emergency (ER) | payer MEDICARE, MEDICAID ==
[~2023-06-11] VITALS: Ht 170.2 cm; Wt 63.6 kg
[~2023-06-11 12:59] MED LIST changes: +CYCL-1 PO
[2023-06-11 13:06] VITALS: TEMP 99
[2023-06-11 14:18] LABS: BASOPHILS # (AUTO) 0.1 X10'3 (0-0.2); BASOPHILS % (AUTO) 1.1 % (0-1); EOSINOPHILS # (AUTO) 0.1 X10'3 (0-0.9); EOSINOPHILS % (AUTO) 0.5 % (0-6); HEMATOCRIT 39.1 % (35.0-45.0); HEMOGLOBIN 13.2 g/dl (12.0-16.0); LYMPHOCYTES # (AUTO) 2.1 X10'3 (1.1-4.8); MEAN CORPUSCULAR HEMOGLOBIN 29.8 PG (27.0-31.0); MEAN CORPUSCULAR HGB CONC 33.7 g/dL (33.0-36.5); MEAN CORPUSCULAR VOLUME 88.2 FL (78-98); MEAN PLATELET VOLUME 7.2 FL (7.4-10.4); MONOCYTES # (AUTO) 0.9 X10'3 (0-0.9); NEUTROPHILS # (AUTO) 10.2 X10'3 (1.8-7.7); NEUTROPHILS % (AUTO) 75.4 % (42-75); PLATELET COUNT 395 X10'3 (140-440); RED BLOOD COUNT 4.44 X10'6 (4.20-5.60); RED CELL DISTRIBUTION WIDTH 13.2 % (11.5-14.5); WHITE BLOOD COUNT 13.5 X10'3 (4.5-11.0)
[2023-06-11 14:22] LABS: URINE HCG NEGATIVE (NEG)
[2023-06-11 14:26] LABS: BILIRUBIN,URINE NEGATIVE (Neg); CLARITY,URINE CLOUDY (Clear); COLOR,URINE YELLOW (Yellow); GLUCOSE, URINE NEGATIVE (Neg); KETONES,URINE NEGATIVE (Neg); LEUKOCYTE ESTERASE ,URINE LARGE (Neg); NITRITES, URINE POSITIVE (Neg); OCCULT BLOOD,URINE MODERATE (Neg); PH,URINE 6.5 (4.8-8.0); PROTEIN,URINE TRACE mg/dl (Neg); UROBILINOGEN,URINE 0.2 E.U/dL (0.2-1.0)
[2023-06-11 14:32] LABS: ALANINE AMINOTRANSFERASE 20 U/L (12-78); ALBUMIN 2.6 G/DL (3.4-5.0); ALBUMIN/GLOBULIN RATIO 0.5 (1.1-1.5); ALKALINE PHOSPHATASE 87 IU/L (46-116); ANION GAP 11 (8-16); ASPARTATE AMINO TRANSFERASE 10 U/L (10-37); BILIRUBIN,TOTAL 0.4 MG/DL (0.1-1.0); BLOOD UREA NITROGEN 11 MG/DL (7-18); BUN/CREATININE RATIO 12.6 (10.0-20.0); CHLORIDE 103 MMOL/L (99-107); CREATININE 0.87 MG/DL (0.40-0.90); GLUCOSE 97 MG/DL (70-104); LIPASE 27 U/L (16-77); POTASSIUM 4.1 MMOL/L (3.5-5.1); SODIUM 139 MMOL/L (135-145); TOTAL CARBON DIOXIDE 25.4 MMOL/L (24-32); TOTAL PROTEIN 7.8 G/DL (6.4-8.2); eCRCL 73 ML/MIN; eGFR 68 ML/MIN
[2023-06-11 14:34] LABS: UA COLLECTION TYPE CLN CATCH MIDSTREAM; WBC,URINE TNTC /HPF (0-4)
[2023-06-11 14:35] LABS: BACTERIA,URINE 3+ /HPF (Neg); SQUAMOUS EPITHELIAL CELL,UR FEW /LPF (FEW); WBC CLUMPS,URINE MANY /HPF (NEGATIVE)
[2023-06-11] MEDS: CefTRIAXone 2gm/D5W 50ml BAG 50 ML IV ONE (15:51)
[2023-06-11] MEDS: normal saline 1000ML IV soln IV ONE (15:51)
[2023-06-11] MEDS ORDERED: CEPH-585 PO (17:06)
[2023-06-11] MEDS ORDERED: PHEN-716 PO (17:06)
[2023-06-11 17:41] VITALS: BP 101/71; PULSE 79; RESP 18; O2SAT 100
== END 2023-06-11 17:43 | disposition home or self-care (01) ==
LOC: ER 13:00
DX: N10 Acute pyelonephritis (principal); I10 Essential (primary) hypertension; J45.909 Unspecified asthma, uncomplicated; G89.29 Other chronic pain; F41.0 Panic disorder [episodic paroxysmal anxiety]; F12.90 Cannabis use, unspecified, uncomplicated; F15.90 Other stimulant use, unspecified, uncomplicated; Z56.0 Unemployment, unspecified; Z91.041 Radiographic dye allergy status; Z91.040 Latex allergy status; Z88.5 Allergy status to narcotic agent; Z88.8 Allergy status to other drugs, medicaments and biological substances; Z79.1 Long term (current) use of non-steroidal anti-inflammatories (NSAID); Z79.899 Other long term (current) drug therapy
CPT/HCPCS: 36415; 74176; 80053; 81001; 81025; 83605; 83690; 84145; 85025; 87040; 87077; 87088; 87186; 96365; 96366; 99285; J0696; J7030